=== PATIENT | male | born 1975 | race Asian ===

== ENCOUNTER 2018-02-18 19:34 | Emergency (ER) | payer SELFPAY ==
[~2018-02-18] VITALS: Ht 182.9 cm; Wt 131.5 kg
[2018-02-18 19:34] VITALS: Ht 182.9 cm; Wt 131.5 kg
[2018-02-18 21:51] LABS: BASOPHIL % 0.4 % (0-2); PLATELET COUNT 198 x10^3mcL (130-400)
[2018-02-18 21:52] LABS: RED CELL DISTRIBUTION WIDTH 16.1 % (11.5-14.5)
[2018-02-18 21:53] LABS: CALCIUM 8.6 mg/dL (8.5-10.1); CARBON DIOXIDE 22.3 mmol/L (21-32); CREATININE SERUM 1.4 mg/dL (0.7-1.3)
[2018-02-18 21:58] LABS: ALBUMIN 3.6 g/dL (3.4-5.0); BILIRUBIN TOTAL 0.38 mg/dL (0.20-1.00); TOTAL PROTEIN, SERUM 7.1 g/dL (6.4-8.2)
[2018-02-18 23:00] VITALS: BP 138/78
== END 2018-02-18 23:30 | disposition home or self-care (01) ==
LOC: ED 19:34
PROVIDERS: Emergency Medicine
DX: T78.2XXA Anaphylactic shock, unspecified, initial encounter (principal); R07.89 Other chest pain; E11.9 Type 2 diabetes mellitus without complications; Z91.013 Allergy to seafood
CPT/HCPCS: 83880; Q0092